=== PATIENT | male | born 1965 | race Caucasian/White ===

== ENCOUNTER 2022-12-25 09:44 | Day surgery (SDC) | payer BC ==
[2022-12-24 09:46] LABS: BASOPHILS % (AUTO) 0.4 % (0-1); EOSINOPHILS # (AUTO) 0.4 X10'3 (0-0.9); EOSINOPHILS % (AUTO) 4.1 % (0-6); LYMPHOCYTES # (AUTO) 2.9 X10'3 (1.1-4.8); LYMPHOCYTES % (AUTO) 29.6 % (21-51); MEAN CORPUSCULAR HEMOGLOBIN 31.3 PG (27.0-31.0); MEAN CORPUSCULAR VOLUME 92.1 FL (78-98); MEAN PLATELET VOLUME 8.1 FL (7.4-10.4); MONOCYTES # (AUTO) 0.7 X10'3 (0-0.9); MONOCYTES % (AUTO) 6.7 % (2-12); NEUTROPHILS # (AUTO) 5.8 X10'3 (1.8-7.7); NEUTROPHILS % (AUTO) 59.2 % (42-75); PRE OP HEMATOCRIT 43.3 % (42.0-52.0); PRE OP HEMOGLOBIN 14.7 g/dL (14.0-17.9); PRE OP PLATELET COUNT 228 X10'3 (140-440); RED CELL DISTRIBUTION WIDTH 13.6 % (11.5-14.5)
[2022-12-24 10:00] LABS: ALBUMIN 3.6 G/DL (3.4-5.0); ALBUMIN/GLOBULIN RATIO 0.9 (1.1-1.5); ALKALINE PHOSPHATASE 79 IU/L (46-116); BLOOD UREA NITROGEN 15 MG/DL (7-18); BUN/CREATININE RATIO 16.9 (10.0-20.0); CALCIUM 8.9 MG/DL (8.5-10.1); CHLORIDE 105 MMOL/L (99-107); CREATININE 0.89 MG/DL (0.60-1.10); PRE OP ALT 37 U/L (30-65); PRE OP ANION GAP 10 (8-16); PRE OP AST 28 U/L (10-37); PRE OP BILIRUB, TOTAL 0.5 MG/DL (0.0-1.0); PRE OP GLUCOSE 97 MG/DL (70-104); PRE OP SODIUM 141 MMOL/L (135-145); TOTAL CARBON DIOXIDE 26.2 MMOL/L (24-32); TOTAL PROTEIN 7.6 G/DL (6.4-8.2); eGFR 88 ML/MIN
[~2022-12-25] VITALS: Ht 177.8 cm; Wt 93.0 kg
[2022-12-25] VITALS (11 sets, daily range): BP systolic 91–160; BP diastolic 54–94
[~2022-12-25 09:44] MED LIST: ASPI81TA52 PO; ATOR-2 PO; DIGO250T2 PO; DOCUMENT DATE & TIME OF BETA-BLOCKER PO ONE; FENO48TA10 PO; LORA10TA7 PO; METO-411 PO; PROSTATE COMPLETE; cefazolin 2gm/D5W 100mL 100 ML IV ONE; famotidine 20mg tablet PO ONE; fish oil; glucosamine; mag ox; metoprolol tartrate 12.5mg (1/2 tablet) PO ONE; mupirocin 2% nasal ointment 1gm UD NS ONE; occuvite; ringers solution, lacted 1,000 ML IV SCH; vitamin a; vitamin d3
[2022-12-25] MEDS ORDERED: morphine 2 MG/ML inj. syringe IV PRN (11:05)
[2022-12-25] MEDS ORDERED: hydrALAZINE 20mg/ml inj. IV PRN (11:05)
[2022-12-25] MEDS ORDERED: meperidine/PF 25mg/ml syringe IV PRN ×3 (11:05)
[2022-12-25] MEDS ORDERED: ringers solution, lacted 1,000 ML IV SCH (11:05)
[2022-12-25] MEDS ORDERED: morphine 4 MG/ML inj SYRINge IV PRN (11:05)
[2022-12-25] MEDS ORDERED: acetaminophen 1,000mg/100ml IV 100 ML IV PRN (11:05)
[2022-12-25] MEDS ORDERED: proCHLORperazine 10 MG/2 ml inj IV PRN (11:05)
[2022-12-25] MEDS ORDERED: ondansetron/PF 4mg/2ml inj IV PRN (11:05)
[2022-12-25] MEDS ORDERED: labetalol 20mg/4ml (5mg/ml) syringe IV PRN (11:05)
[2022-12-25] MEDS ORDERED: BUPIVAcaine 0.5% inj/PF 30 ML ONE (11:13)
[2022-12-25] MEDS ORDERED: ceFAZolin 1000mg inj ONE (11:13)
[2022-12-25] MEDS ORDERED: fentaNYL/PF 50MCG/1 ML 2ML syringe ONE (11:23)
[2022-12-25] MEDS ORDERED: MIDAZolam 1 MG/ML 5ML VIAL ONE (11:42)
[2022-12-25] MEDS ORDERED: ROPIVAcaine 0.5% (5mg/ml) 30ml vial ONE (11:42)
[2022-12-25] MEDS ORDERED: BUPIVAcaine 0.25% w/Epi /PF 30ml vial IJ ONE (11:45)
[2022-12-25] MEDS ORDERED: propofol inj 20 ML IV ONE ×3 (11:45)
[2022-12-25] MEDS ORDERED: ROPIVAcaine 0.5% (5mg/ml) 30ml vial IJ ONE (11:52)
--- NOTE | 2022-12-25 12:04 | NUR ---
Received from OR via [facility], accompanied by Anesthesiologist and report given by [facility] Anesthesiologist. PATIENT WAKING UP, NO S/S OF PAIN, V/S WNL, 20G TO LEFT HAND, DRESSING to LEFT UPPER CHEST-C/D/I. Addendum: 12/25/22 at 1251 by Lang Barnard RN Amended: Links added.
--- NOTE | 2022-12-25 13:39 | NUR ---
ALL DISCHARGE CRITERIA HAS BEEN MET. VSS, PAIN AT A TOLERABLE LEVEL, ABLE TO SAFELY AMBULATE AND TRANSFER SELF. IV TAKEN OUT WITHOUT ANY COMPLICATIONS. ALL DISCHARGE INSTRUCTIONS COVERED WITH PATIENT AND ALL QUESTIONS ANSWERED. PATIENT TAKEN OUT VIA WHEELCHAIR WITH ALL BELONGINGS TO PERSONAL VEHICLE WHERE FAMILY DROVE PATIENT HOME. Addendum: 12/25/22 at 1341 by Lang Barnard RN Amended: Links added.
== END 2022-12-25 13:39 | disposition home or self-care (01) ==
LOC: PAS 09:44
PROVIDERS: ATTEND Thoracic Surgery (Cardiothoracic Vascular Surgery)
DX: Z45.02 Encounter for adjustment and management of automatic implantable cardiac defibrillator (principal); G47.33 Obstructive sleep apnea (adult) (pediatric); F12.90 Cannabis use, unspecified, uncomplicated; I48.91 Unspecified atrial fibrillation; E78.5 Hyperlipidemia, unspecified; I42.9 Cardiomyopathy, unspecified; K21.9 Gastro-esophageal reflux disease without esophagitis; K58.9 Irritable bowel syndrome, unspecified; Z79.899 Other long term (current) drug therapy; Z98.890 Other specified postprocedural states; Z90.49 Acquired absence of other specified parts of digestive tract
CPT/HCPCS: 33263; 36415; 80053; 82948; 85025; 93005; A6258; C1721; J0690; J2250; J2704; J2795; J3010; J7030; J7120; S0020; Z7506; Z7512; A4215; A4618; A7000

== ENCOUNTER 2023-10-13 13:00 | Emergency (ER) | payer BC ==
[~2023-10-13] VITALS: Ht 177.8 cm; Wt 96.0 kg
[~2023-10-13 13:00] MED LIST changes: -DOCUMENT DATE & TIME OF BETA-BLOCKER PO ONE; -cefazolin 2gm/D5W 100mL 100 ML IV ONE; -famotidine 20mg tablet PO ONE; -metoprolol tartrate 12.5mg (1/2 tablet) PO ONE; -mupirocin 2% nasal ointment 1gm UD NS ONE; -ringers solution, lacted 1,000 ML IV SCH
[2023-10-13 13:42] VITALS: TEMP 98.2
[2023-10-13] MEDS ORDERED: LIDO700A32 TOP (15:29)
[2023-10-13 16:00] VITALS: BP 140/80; PULSE 60; RESP 14; O2SAT 99
== END 2023-10-13 16:05 | disposition home or self-care (01) ==
LOC: ER 13:02
DX: R07.81 Pleurodynia (principal); Z79.899 Other long term (current) drug therapy; Z79.82 Long term (current) use of aspirin
CPT/HCPCS: 71100; 99283